=== PATIENT | female | born 2000 | race Caucasian/White ===

== ENCOUNTER 2022-12-25 11:09 | Outpatient (CLI) | payer BC, MEDICAID, SELFPAY | END 2022-12-25 11:10 | disposition home or self-care (01) | LOC: NFLDREF 12-27 11:37 | PROVIDERS: Visit Provider Obstetrics & Gynecology | DX: O99.013 Anemia complicating pregnancy, third trimester (principal); Z3A.34 34 weeks gestation of pregnancy | CPT/HCPCS: 86787 ==

== ENCOUNTER 2022-12-26 14:24 | Outpatient (CLI) | payer BC, MEDICAID, SELFPAY | END 2022-12-26 14:25 | disposition home or self-care (01) | LOC: NFLDREF 14:25 | PROVIDERS: Visit Provider Obstetrics & Gynecology | DX: O99.019 Anemia complicating pregnancy, unspecified trimester (principal) | CPT/HCPCS: 82728 ==

== ENCOUNTER 2023-01-08 13:40 | Outpatient (CLI) | payer BC, MEDICAID, SELFPAY | END 2023-01-08 13:41 | disposition home or self-care (01) | PROVIDERS: PCP Registered Nurse; Visit Provider Advanced Practice Midwife | DX: Z34.03 Encounter for supervision of normal first pregnancy, third trimester (principal); Z36.85 Encounter for antenatal screening for Streptococcus B; Z3A.36 36 weeks gestation of pregnancy | CPT/HCPCS: 87081; 87653 ==

== ENCOUNTER 2023-01-10 10:30 | Outpatient (RCR) | payer BC, MEDICAID, SELFPAY ==
--- NOTE | 2022-12-27 16:02 | URNOTE ---
Request received for authorization for Tico ([id number]). Prior authorization is not required per [facility] injectable drug authorization list.
[2023-01-03 13:43] VITALS: BP 110/72; PULSE 102; RESP 16; TEMP 36.7; O2SAT 98
[2023-01-03] MEDS: ferumoxytoL 510 MG in 0.9 % SODIUM CHLORIDE 250 ml 250 ML 1068 MG IVPB (14:04)
[2023-01-03] MEDS: 0.9 % SODIUM CHLORIDE 250 ml IV (14:06)
[2023-01-03 14:31] VITALS: BP 100/65; PULSE 110; RESP 16; TEMP 36.6; O2SAT 98
[2023-01-03 15:22] VITALS: BP 100/65; PULSE 99; RESP 16; TEMP 36.7; O2SAT 97
[2023-01-10 10:39] VITALS: BP 100/69; PULSE 92; RESP 16; TEMP 36.4; O2SAT 92
[2023-01-10] MEDS: 0.9 % SODIUM CHLORIDE 250 ml IV (11:15)
[2023-01-10] MEDS: SODIUM CHLORIDE 0.9 % (FLUSH) 10 ML SYRINGE IVF (11:15)
[2023-01-10] MEDS: ferumoxytoL 510 MG in 0.9 % SODIUM CHLORIDE 250 ml 250 ML 1068 MG IVPB (11:15)
[2023-01-10 11:34] VITALS: BP 104/67; PULSE 85; RESP 16; TEMP 37; O2SAT 97
[2023-01-10 12:12] VITALS: BP 101/66; PULSE 96; RESP 18; O2SAT 97
== END 2023-07-02 23:59 | disposition home or self-care (01) ==
LOC: CCIC 10:30
PROVIDERS: PCP Registered Nurse; Referring Provider Obstetrics & Gynecology; Visit Provider Obstetrics & Gynecology
DX: O99.019 Anemia complicating pregnancy, unspecified trimester (principal)
CPT/HCPCS: 96374; J7050; Q0138

== ENCOUNTER 2023-01-30 08:17 | Outpatient (CLI) | payer MEDICAID, SELFPAY ==
[2023-01-30 08:24] VITALS: RESP 18; TEMP 36.6
[2023-01-30 08:26] VITALS: PULSE 96; O2SAT 98
[2023-01-30 08:31] VITALS: PULSE 103; O2SAT 97
[2023-01-30 08:36] VITALS: BP 114/73; PULSE 89
--- NOTE | 2023-01-30 09:42 | PC.OBNST ---
NST Note NST Note Start: 01/30/23 08:20 Freq: ONCE Status: Active Protocol: Document 01/30/23 09:41 MMB (Rec: 01/30/23 09:42 MMB [id number]) NST Note 1 Para (# of births) 0 EDC 02/02/23 Gestational Age In Weeks & Days 39 Weeks & 4 Days Patient Presented with Complaint(s) of Contractions/cramping,Vaginal bleeding,Decreased movement Reactive Yes Appropriate for Gestational Age Yes RN Tori Johnston RN Date 01/30/23 Reactive Yes Appropriate for Gestational Age Yes TRACY Gramajo RN Date 01/30/23 OB NST charge Yes Complete NST Note via Write Note Yes The provider's electronic signature indicates the NST is reactive/appropriate for gestational age. *Note to provider: If an addendum is required, open the patient's chart and click on the note under the Nurse/Allied Health tab.
== END 2023-01-30 09:32 | disposition home or self-care (01) ==
LOC: OB OUT 08:18 → OB 08:19
PROVIDERS: Visit Provider Obstetrics & Gynecology
DX: O47.1 False labor at or after 37 completed weeks of gestation (principal); Z3A.39 39 weeks gestation of pregnancy
CPT/HCPCS: 59025; 99213

== ENCOUNTER 2023-01-31 08:25 | Inpatient (IN) | payer MEDICAID, SELFPAY ==
[2023-01-31] VITALS (57 sets, daily range): BP systolic 89–135; BP diastolic 51–83; PULSE 92–144; RESP 16–20; TEMP 36.7–37.3; O2SAT 96–100; BMI 28.2
[2023-01-31] MEDS: LACTATED RINGERS 1000 ML 1,000 ML 125 ML IV ×2 (08:51→16:23)
[2023-01-31] MEDS: AMPICILLIN 2 GM in 0.9 % SODIUM CHLORIDE Mini-bag 100 ML IVPB (08:52)
--- NOTE | 2023-01-31 10:02 | P.LDBA_ITS ---
Subjective History of Present Illness Time Seen by Provider: 09:00 Date Seen: 01/31/23 Narrative: Patient is being admitted to Labor and Delivery for spontaneous onset of labor. She is a 22 year old at 39 weeks 5 days gestation. Her full history and physical was completed by Dr. Simms on 01/15/2023. Please see this for details. Specific Issues/Plans H&P done on 01/15/[address] Simms 1. Transfer of care at 30 3/7 weeks 2. Anemia: hgb 10.4 on 11-13. Begin qod iron on 11/27. Repeat 12/25/22: Hb 10.3. * IV iron 1st dose 01/03, 2nd 01/10 * Hemoglobin: 11.6 on 01/15/23 3. Placental lacunae seen at 22weeks. No measurable blood flow noted. 4. Low lying placenta. RESOLVED. 5. GBS positive, plan ampicillin intrapartum Covid: not vaccinated. Recommended. Reviewed risks associated with covid infection in . 06-12-22 and 06-26-22: Blood type: O positive Ab screen neg Hgb 14.4 Platelets 255 Rubella immune RPR nonreactive HBsAg nonreactive HIV neg GC/Chlam neg/neg Pap: n/a Hep C nonreactive Urine culture: no growth 07-24-22: NIPT: low risk 11-13-22: Hgb 10.4* Ultrasounds: US on 06/12/22 shows single live IUP with dating discrepancy. Rec. revised EDC of 02-02-23 09-19-22 FAS: Anterior, low lying placenta 1.47cm from os. Situs not well seen. Slightly hyperechoic area between edge of placenta and internal os of cervix which could represents a small LUCIANA, sinus previa, or potentially a mucous plug. Rec. f/u US w/ MFM to evaluate. 09-30-22: active single fetus, EFW apropriate, nl JULIO, nl anatomy, cervix closed, placenta appears normal with small lacunae with have no measurable blood flow. It is NOT low lying or previa. Tdap: received 32 weeks OB - Problem Based A/P Additional Plan (1) Spontaneous onset of labor: Status: Acute Plan 1. Rupture membranes once ampicillin has been in for at least 3 hours. 2. The patient is open to any/all options for analgesia during labor. She is unsure if she wants medications or epidural for labor analgesia. 3. Expect vaginal delivery OB Exam Physical Exam Vital signs: Temp Pulse Resp BP Pulse Ox 98.7 F 97 16 121/83 96 01/31/23 09:49 01/31/23 09:48 01/31/23 09:49 01/31/23 09:48 01/31/23 06:22 Narrative: GENERAL APPEARANCE: Pleasant, , well-groomed woman in no acute distress. VITAL SIGNS: as noted in nursing notes HEAD: Normocephalic, atraumatic. THYROID: no masses, nodularity, tenderness or enlargement. LUNGS: Clear to auscultation bilaterally without wheezes, rales or rhonchi. HEART: Regular rate and rhythm with normal S1 and S2. No gallop, rub or murmur. ABDOMEN: Gravid. Soft, nontender, nondistended, with normal bowels sounds throughout. EFW: 130s, accelerations present, decelerations absent, reactive. Category 1 PRESENTATION: Vertex by Polo's maneuvers. SVE per nursin cm/ 60 %/ 0/soft/mid. Morfin score: 10 EXTREMITIES: No cyanosis, clubbing, or edema. No varicosities. NEUROLOGIC: Normal gait and balance. Normal deep tendon reflexes at bilateral patella 2+/2, equal without clonus. PSYCHIATRIC: alert and oriented x3. Normal speech pattern, eye contact and affect. SKIN: Warm, dry, and well perfused. Good turgor. No lesions, nodules or rashes.
[2023-01-31] MEDS: AMPICILLIN 1 GM in 0.9 % SODIUM CHLORIDE Mini-bag 100 ML IVPB ×2 (12:43→16:54)
--- NOTE | 2023-01-31 13:10 | PM.OBPNL ---
Subjective Time Seen by Provider: 12:30 Date Seen: 01/31/23 Narrative: Subjective: Aminata is feeling very uncomfortable with contractions and is somewhat tearful. She is considering an epidural. She would like to have her cervix checked to make the decision between epidural or not. She has been using nitrous gas for the last 1.5-2 hours. Objective: Vital signs per the patient's electronic medical record. EFW: 135 baseline, accelerations present, decelerations absent, reactive. Category 1 [place]: Contractions every 2-3 minutes. SVE: 6 cm/100%/+1 station. Bulging bag of water. Assessment: Active phase of stage of labor. Plan: 1. Planning epidural for labor analgesia 2. AROM when comfortable with the epidural. Objective Vital Signs: Last Vital Signs Temp 98.7 F 01/31/23 09:49 Pulse 97 01/31/23 11:41 Resp 16 01/31/23 09:49 BP 112/73 01/31/23 11:41 Pulse Ox 97 01/31/23 11:40
[2023-01-31] MEDS: LIDOCAINE 2% (PF) 5 ML VIAL EPIDURAL (14:20)
[2023-01-31] MEDS: ROPIVACAINE 0.2% 100 ml 100 ML 10 MG EPIDURAL (14:23)
--- NOTE | 2023-01-31 14:35 | PM.ANBPRC ---
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 What is your current living situation?: I presently have a place to live Problems where you live: no known problems In the past 12 months, utilities in danger of being shut off: no In past 12 months, lack of transportation kept you from medical appts, meetings, work, or getting things needed for daily living: no In the past 12 mos, have been you worried that your food would run out before you had money to buy more?: never true In the past 12 mos, the food you bought just didn't last and you didn't have money to buy more?: never true Smoking Status: Never smoker How often does anyone, including family, friends and others, physically hurt you: never How often does anyone, including family, friends and others, insult or talk down to you: never How often does anyone, including family, friends and others, threaten you with harm: never How often does anyone, including family, friends and others, scream or curse at you: never Little interest or pleasure in doing things: not at all Feeling down, depressed, or hopeless: not at all Meds Home Medications and Allergies Home Medications Medication Instructions Recorded Confirmed Type docosahexaenoic acid 200 mg mg PO 11/27/22 01/22/23 History capsule ( DHA) calcium carbonate 200 mg calcium 200 mg PO BID PRN 12/25/22 01/31/23 History (500 mg) chewable tablet (Tums) Allergies Allergy/AdvReac Type Severity Reaction Status Date / Time Milk Containing Products AdvReac Mild Gastrointestinal Verified 01/31/23 07:42 (Dairy) Upset Results Vital Signs Vital Signs: Last Vital Signs Temp 98.5 F 01/31/23 14:09 Pulse 104 H 01/31/23 14:30 Resp 16 01/31/23 14:09 BP 109/70 01/31/23 14:30 Pulse Ox 98 01/31/23 14:34 Weight: 69.989 kg Height: 157.48 cm Anesthesia Procedures Epidural Insertion Patient Location: OB Start Time: 14:00 Stop Time: 14:30 Start Date: 01/31/23 Stop Date: 01/31/23 Reason for Block: procedure for pain Patient Position: sitting Performed By: Jermaine Ace Preanesthetic Checklist: IV checked, risks and benefits discussed, monitors and equipment checked, pre-op evaluation, timeout performed and anesthesia consent Prep: chlorhexidine gluconate Monitoring: blood pressure monitoring, continuous pulse oximetry and heart rate Approach: midline Vertebral Space: lumbar (1-5) Epidural Technique: BAMBI saline Needle Type: Tuohy needle Injection Technique: continuous catheter Needle gauge: 17 Needle Length (cm): 10 cm Needle Insertion Depth (cm): 5 Catheter Gauge: 19 Catheter Type: multi-orifice Catheter at skin depth (cm): 11 Test Dose Result: negative and lidocaine 1.5% with epinephrine 1 to 200,000
[2023-01-31] MEDS: OXYTOCIN 30 unit/500 ML in NS 30 UNIT/500 ML BAG 325 UNIT IVPB (18:00)
--- NOTE | 2023-01-31 18:24 | W.PM.VAGDEL1 ---
Procedure Delivery date: 01/31/23 Procedure Done: Global Procedure Details: Aminata is a 22 year-old G 1 P 0 now [] admitted on 01/31/2023 at 0730 at 39 Weeks, 5 Days gestation for spontaneous onset of labor. AROM occurred at 4:07 p.m. on 01/31/2023 with clear fluid. Labor Analgesia: Nitrous and epidural Pitocin: No Labor onset: 01/31/2023 at 5:00 a.m. Complete: 01/31/2023 at 5:22 p.m.. Pushin01/31/2023 at 5:34 p.m.. heart tones during second stage were: Category 2 with early decelerations to the 90s to 100s with contractions with immediate return to baseline and moderate variability between contractions, reassuring. At 5:49 p.m. a viable female infant delivered in vertex direct OA presentation over bilateral second-degree labial lacerations via spontaneous vaginal delivery. The infant was placed on maternal abdomen. Cord was clamped and cut after the cord stopped pulsing. Nose and mouth were bulb suctioned. Infant weight pending. 9 at 1 minute and 9 at 5 minutes. Shoulder dystocia: No. Nuchal cord: No Placenta delivered spontaneously and complete at 6:01 p.m. with a 3 vessel cord. Laceration(s): Bilateral second-degree labial. Repaired using 3-0 Vicryl suture in a running locked manner. Blood loss: 250 mL. Blood loss measurement type: Quantitative Sponge and needles counts are correct. Specimen: Placenta Mother and were stable after delivery. 's name: Harmony The patient is planning on breast feeding. Intrapartal Events: None Delivery augmentation: rupture of membranes Delivery monitor: external FHT Route of delivery: Laceration description: Labial (Bilateral, 2nd degree) Delivery repair: Vicryl Estimated blood loss (mL): 250 Anesthesia type: Epidural Disposition: floor [place] Infant Gender: Female presentation: vertex Placental Delivery Description: Spontaneous Cord Description: 3 Vessels
[2023-01-31] MEDS: IBUPROFEN 600 MG TABLET PO (22:34)
[2023-02-01] MEDS: ACETAMINOPHEN 500 MG TABLET 1000 MG PO ×2 (02:10→13:44)
[2023-02-01 04:40] VITALS: BP 101/66; PULSE 95; RESP 16; TEMP 36.6; O2SAT 97
[2023-02-01 07:32] LABS: Hemoglobin* 11.2 gm/dL (12.0-16.0)
[2023-02-01] MEDS: DOCUSATE SODIUM 100 MG CAPSULE PO (08:39)
[2023-02-01] MEDS: IBUPROFEN 600 MG TABLET PO ×2 (08:39→21:45)
[2023-02-01 08:42] VITALS: BP 112/74; PULSE 98; RESP 16; TEMP 36.4; O2SAT 95
--- NOTE | 2023-02-01 09:50 | PM.OBPNVD1 ---
OB - PN:Subj Subjective Date Seen: 02/01/23 Patient comments OB post-: no complaints, pain well controlled, tolerating diet and flatus present [place] status: [place] feeding status: exclusively Narrative: Ana Paula is a 22 y.o. who was admitted to L & D In labor for delivery. ?She had an uncomplicated .?The patient feels well. ?The pain is well controlled with current medications. ?She has no new complaints. ?She is breast feeding and reports things are going well.? the patient has done well.? Vitals have been stable.? She has remained afebrile.? Has a good appetite, is tolerating a general diet. ?She is voiding without difficulty.? She is passing gas and has not had a bowel movement.? She is ambulating and denies any dizziness.? Has Small amount of rubra lochia. ? OB - PN: Obj Exam Physical Exam: Vital signs: Temp Pulse Resp BP Pulse Ox O2 Del Method 97.6 F 98 16 112/74 95 Room Air 02/01/23 08:42 02/01/23 08:42 02/01/23 08:42 02/01/23 08:42 02/01/23 08:42 02/01/23 08:42 Narrative: VITAL SIGNS: As noted above. GENERAL APPEARANCE: Alert, cooperative female in no acute distress. MOOD & AFFECT: Normal. ABDOMEN: Soft, non-distended and nontender. Uterus well contracted at umbilicus. : Normal lochia. EXTREMITIES: Nonedematous. Well perfused. Nontender. OB - PN: Obj Data Labs Labs: Laboratory Results - last 24 hr 02/01/23 07:25 Hgb 11.2 L OB - PN: A/P Delivery Assessment and Plan (1) Spontaneous onset of labor: Status: Deleted Plan day: 1 Plan: routine care
[2023-02-01 13:35] VITALS: BP 107/73; PULSE 99; RESP 16; TEMP 36.7; O2SAT 97
[2023-02-01 16:17] VITALS: BP 99/65; PULSE 105; RESP 16; TEMP 36.9; O2SAT 97
[2023-02-01 22:57] VITALS: BP 96/63; PULSE 97; RESP 16; TEMP 36.7; O2SAT 97
[2023-02-02] MEDS: ACETAMINOPHEN 500 MG TABLET 1000 MG PO (06:22)
[2023-02-02 07:56] VITALS: BP 101/71; PULSE 91; RESP 16; TEMP 36.7; O2SAT 96
--- NOTE | 2023-02-02 09:56 | P.DS_ITS ---
DS: Providers Provider Date Seen: 02/02/23 Date of admission: 01/31/23 08:25 Primary care physician: Not a Local Provider Admitting Clinician: Pilar Murillo MD Attending Physician on discharge: Rodolfo Rodney MD Date of Discharge: 02/02/23 DS: Diagnosis Discharge Diagnosis (1) (normal spontaneous vaginal delivery): Status: Acute Exam Narrative: Exam Narrative: VITAL SIGNS: As noted above. GENERAL APPEARANCE: Alert, cooperative female in no acute distress. MOOD & AFFECT: Normal. ABDOMEN: Soft, non-distended and appropriately tender, uterus well contracted at umbilicus.. : Normal lochia. EXTREMITIES: Nonedematous. Well perfused. Nontender. Const: Vital Signs, click to edit/add: Vital Signs - 24 hr 02/01/23 13:35 02/01/23 16:17 02/01/23 22:57 Temperature 98.0 F 98.4 F 98.1 F Pulse Rate [Pulse Oximeter] 99 105 H 97 Respiratory Rate 16 16 16 Blood Pressure [Le ft Arm] 107/73 99/65 96/63 Pulse Oximetry 97 97 97 Oxygen Delivery Me thod Room Air Room Air Room Air 02/02/23 07:56 Temperature 98.0 F Pulse Rate [Pulse Oximeter] 91 Respiratory Rate 16 Blood Pressure [Le ft Arm] 101/71 Pulse Oximetry 96 Oxygen Delivery Me thod Room Air OB - DS: Summary Hospital Course Hospital Course: The patient is a 22 year old G 1 P 1 at 39 6/7 weeks gestation that was admitted to the Center on 01/31/23 in labor for delivery. She had an uncomplicated vaginal delivery. She delivered a viable female . She is breast feeding. the patient has done well. Peripartum Data delivery method: Vaginal Laceration description: Labial complications: none [place] Infant Gender: Female Discharge Plan: Home Status at Discharge Functional status at discharge: independent ambulation Overall status at discharge: patient is progressing back to baseline Time Spent with Patient Time attestation: Total time spent providing and/or coordinating discharge services: Discharge Plan Discharge Disposition: Home, Self-Care Date of Admission: 01/31/23 08:25 Attending Provider on Discharge: Meeta Rodney Primary Care Provider: Provider,Not a Local Condition: Stable Anticipated Discharge Date/Time: 02/02/23 09:59 Discharge Medications: New acetaminophen 500 mg Tablet 1,000 mg PO Q6H PRNQty: 30 0RF ibuprofen 600 mg Tablet 600 mg PO Q6H PRNQty: 30 0RF Continued DHA 200 mg capsule 200 mg PO DAILY calcium carbonate [Tums] 200 mg calcium (500 mg) tablet,chewable 200 mg PO BID PRN Discharge Orders: Discharge Order (Routine); Ordered 02/02/23 Ordered By: Meeta Rodney Patient Education: OB Vaginal/Breast Feeding Additional Instructions: Follow up in clinic in 2 weeks for mood and check. Follow up in clinic in 6 weeks for regular check. Patient interested in progesterone IUD. Activity Level: Activity as Tolerated Activity Detail: Nothing vaginally for 6 weeks Discharge Diet: Regular Follow Up Appointments: Provider,Not a Local [Primary Care Provider] - [facility]
== END 2023-02-02 11:15 | disposition home or self-care (01) | DRG 807 ==
LOC: OB OUT 08:27 → OB 08:27
PROVIDERS: Admitting Provider Obstetrics & Gynecology; Visit Provider Obstetrics & Gynecology
DX: O99.824 Streptococcus B carrier state complicating childbirth (principal); Z37.0 Single live birth; O70.1 Second degree perineal laceration during delivery; O99.02 Anemia complicating childbirth; D64.9 Anemia, unspecified; Z3A.39 39 weeks gestation of pregnancy
CPT/HCPCS: 01967; 36415; 85018; A9270; J0290; J2371; J2795; J7120

== ENCOUNTER 2024-12-01 07:30 | Day surgery (SDC) | payer MEDICAID, SELFPAY ==
[2024-12-01] VITALS (9 sets, daily range): BP systolic 99–113; BP diastolic 65–98; PULSE 60–94; RESP 16–20; TEMP 36.3–37.4; O2SAT 96–100; BMI 19.6
[2024-12-01 07:51] LABS: Ur HCG Qualitative* Negative (Negative)
[2024-12-01] MEDS: SODIUM CHLORIDE 0.9 % (FLUSH) 10 ML SYRINGE IVF (08:24)
[2024-12-01] MEDS: LACTATED RINGERS 1000 ML 1,000 ML 100 ML IV (08:25)
[2024-12-01] MEDS: MIDAZOLAM HCL 1 MG/ML inj IVP (08:45)
--- NOTE | 2024-12-01 08:53 | SUR.PREOP ---
TIME?OUT:?0842, right foot PT/RN/MDA?VERIFICATION?OF?SURGICAL?SITE,?PROCEDURE,?AND?CONSENT OBTAINED?PRIOR?TO?INVASIVE?PROCEDURE.
--- NOTE | 2024-12-01 09:16 | P.ANES_ITS ---
Anesthesia Charges Start Date/Time Anesthesia Start Date: 12/01/24 Anesthesia Start Time: 08:55 Stop Date/Time Anesthesia Stop Date: 12/01/24 Anesthesia Stop Time: 12:40 Coding CPT Codes CPT Codes: ANESTH LOWER LEG BONE SURG - 15591 ([id number]) P1 - NORMAL HEALTHY PATIENT, QK - FAMILY DEVELOPMENT SPECIALIST 2-4 CNCRNT ANES PROC, QX - BOBBIN COLLECTOR SVTroy W/ MED DIRECTION
--- NOTE | 2024-12-01 09:16 | W.ANESCHARGE ---
Anesthesia Charges Start Date/Time Anesthesia Start Date: 12/01/24 Anesthesia Start Time: 08:55 Stop Date/Time Anesthesia Stop Date: 12/01/24 Anesthesia Stop Time: 12:40 Coding CPT Codes CPT Codes: ANESTH LOWER LEG BONE SURG - 88561 ([id number]) P1 - NORMAL HEALTHY PATIENT, QK - AIR/OCEAN EXPORT CLERK 2-4 CNCRNT ANES PROC, QX - DIGITAL ACCOUNT MANAGER SVTroy W/ MED DIRECTION
--- NOTE | 2024-12-01 09:29 | SUR.OPER ---
PATIENT QUESTIONS ANSWERED SATISFACTORILY PREOPERATIVELY.? PATIENT BROUGHT TO OR #1 PER CART.? Patient positioned supine on OR #1 bed.? The perioperative?team supported arms bilaterally on arm boards.? Final approval of positioning by surgeon.
--- NOTE | 2024-12-01 09:46 | P.ANES_ITS ---
Anesthesia Charges Start Date/Time Anesthesia Start Date: 12/01/24 Anesthesia Start Time: 08:55 Stop Date/Time Anesthesia Stop Date: 12/01/24 Anesthesia Stop Time: 12:40 Coding CPT Codes CPT Codes: ANESTH LOWER LEG BONE SURG - 14563 ([id number]) P1 - NORMAL HEALTHY PATIENT, QK - HEEL TURNER 2-4 CNCRNT ANES PROC, QX - VAC PRESS OPERATOR SVTroy W/ MED DIRECTION
--- NOTE | 2024-12-01 09:46 | W.ANESCHARGE ---
Anesthesia Charges Start Date/Time Anesthesia Start Date: 12/01/24 Anesthesia Start Time: 08:55 Stop Date/Time Anesthesia Stop Date: 12/01/24 Anesthesia Stop Time: 12:40 Coding CPT Codes CPT Codes: ANESTH LOWER LEG BONE SURG - 96736 ([id number]) P1 - NORMAL HEALTHY PATIENT, QK - CROP RANCH HAND 2-4 CNCRNT ANES PROC, QX - TEAM ASSISTANT SVTroy W/ MED DIRECTION
--- NOTE | 2024-12-01 09:47 | W.PM.NB ---
Nerve Block Nerve Block Time Seen by Provider: 08:45 Date Seen: 12/01/24 Type of block requested by surgeon for post-operative analgesia: popliteal Side: right Time out performed: Yes Verification of patient name: Yes Verification of date of : Yes Site marking: site marked Name of person performing procedure: Dejan Continuous monitoring Was continuous monitoring of O2 sat, B/P, professor of genetics, recorded every 15 minutes?: Yes Procedure Checklist: sterile prep, needles and gloves Ultrasound guided. Images saved: Yes Medications given in 5ml increments after negative aspiration: Marcaine %: 0.25 mL: 15 and Exparel mL: 5 Needle gauge: 22 Patient tolerated procedure well: Yes Additional comments: Needle noted adjacent to nerve Block Charges Block Charge (with Pro Fee): Sciatic Nerve Use of Ultrasound Machine for Block: Yes- US Guidance/pain block
--- NOTE | 2024-12-01 09:47 | W.PM.NB ---
Nerve Block Nerve Block Time Seen by Provider: 08:45 Date Seen: 12/01/24 Type of block requested by surgeon for post-operative analgesia: adductor canal Side: right Time out performed: Yes Verification of patient name: Yes Verification of date of : Yes Site marking: site marked Name of person performing procedure: Dejan Continuous monitoring Was continuous monitoring of O2 sat, B/P, cardiac rehabilitation program director, recorded every 15 minutes?: Yes Procedure Checklist: sterile prep, needles and gloves Ultrasound guided. Images saved: Yes Medications given in 5ml increments after negative aspiration: Marcaine %: 0.25 mL: 15 and Exparel mL: 5 Needle gauge: 22 Patient tolerated procedure well: Yes Additional comments: Needle noted adjacent to nerve Block Charges Block Charge (with Pro Fee): Femoral Nerve Use of Ultrasound Machine for Block: Yes- US Guidance/pain block
[2024-12-01] MEDS: BUPIVACAINE 0.25% 30 ML 10 ML INJECTION (12:19)
--- NOTE | 2024-12-02 09:23 | W.PM.PODPROC ---
Date of Procedure: 12/01/24 Time Seen by Provider: 08:30 Surgeon: Radha Gramajo DPM Co-Surgeon: Julius Gallego DPM Pre-op Diagnosis: 1. Right bunion 2. Right tailors bunion 3. Exostosis right 1st metatarsal Post-op Diagnosis: 1. Right bunion 2. Right tailors bunion 3. Exostosis right 1st metatarsal Type of Procedure: 1. Right foot lapidus bunionectomy 2. Right foot taliors bunionectomy 3. Right foot cheilectomy 4. Bone graft harvest right foot 5. Application of posterior splint right lower extremity Procedure Description: The patient was identified prior to being brought back into the operating room using their name and date of as patient identifiers. The intended surgical care plan was then reviewed in detail with the patient as well as rationale for surgery, most common risks, complications, and expected recovery course. The patient was given opportunity to ask questions, which were to the best of my ability. Patient ultimately voiced no questions or concerns and agreed to proceed forward with the surgery as planned. The patient was brought from the preoperative holding area to the operating room, and placed on the operating room table in the supine positions. At this time a timeout was performed by myself and operating room staff to identify the proper patient, site and operation to be performed. A well padded pneumatic ankle tourniquet was applied to the patient's operative lower extremity. The extremity was then scrubbed, prepped and draped in the normal sterile fashion. The lateral aspect of the calcaneus was penetrated with a large bore needle using standard technique and bone marrow along with chips of cancellous bone within the calcaneus was aspirated in 0.5-cc increments with redirection between each increment until an appropriate volume of bone marrow aspirate was obtained for use with the operative procedure performed. The integrity of the bone marrow aspiration/bone graft site was verified with stress palpation. Attention was then directed over the left foot 1st met-cuneiform joint. An incision was made where dissection was carried deep down to the level of the deep capsular and periosteal tissue.? A longitudinal linear capsulotomy was then performed and this tissue was reflected to expose the 1st metatarsal cuneiform joint. Attention was then directed to the medial 1st metatarsal phalangeal joint. An incision was made and dissection was carried deep down to the level of the deep capsular and periosteal tissue.? A longitudinal linear capsulotomy was performed and a small wedge of capsular tissue was sharply removed. An exostosis was noted off the head of the 1st metatarsal, and using a sagittal saw, this spur was removed in total. Attention was then carried deep into the 1st interspace, and the conjoined adductor tendon identified and released. The fibular sesamoid was dissected free from the flexor hallucis brevis tendon. Attention was then directed back toward the 1st metatarsal cuneiform joint. According to the clinical appeals rn's technique using the Lapiplasty system, a sagittal saw was then utilized to resect the articulating cartilage from the medial cuneiform, taking a laterally based wedge to correct for the increased intermetatarsal angle.? the cartilage from the base of the 1st metatarsal. Both sides of the joint were then fish-scaled and fenestrated in preparation for fusion and the previously harvested bone graft was packed into the site of fusion. The 1st met-cuneiform was reduced with the clamp system while achieving frontal plane derotation, first ray plantarflexion and intermetatarsal angle reduction. Direct image intensification was utilized to confirm the position and length of our temporary fixation. At this time, two locking plate constructs were used along the medial and dorsal aspect of the arthrodesis site.? Position and deformity correction was once again confirmed under direct visualization and image intensification, and was noted to be satisfactory and provide stable rigid internal fixation. Attention was then directed to the dorsal aspect of the 5th metatarsal, right foot. The planned incision was marked with a pen over the dorsal aspect of the right 5th metatarsophalangeal joint. A longitudinal linear incision made through the skin. The incision was carried deep through the subcutaneous tissue. Care was taken to retract and protect all vital neurovascular structures. The subcutaneous tissue was dissected and from the underlying capsule and periosteum and the level of the capsule and periosteum were identified. A longitudinal linear capsular incision was made on the dorsal lateral aspect of the fifth metatarsal. Periosteum and capsule were dissected free from the underlying bone. The lateral prominence to be removed was marked with a pen, and the a sagittal saw was utilized to resect the lateral eminence from the head. A hand rasp was utilized to round off the lateral metatarsal head. Copious irrigation of the incision site was carried out. The surgical sites were copiously irrigated. Deep Capsular tissues and subcutaneous layers were closed with absorbable sutures and skin was reapproximated with non-absorbable sutures. Upon release of the pneumatic tourniquet, immediate reperfusion of toes 1 through 5 was noted. A postoperative sir kiara wylie modified dressing consisting of xeroform, ABDs, Kerlix, 4 x 4's, and an JAG bandage was applied to the patient's right foot. A well fiberglass posterior splint was then applied keeping the pt's ankle in neutral.? The patient was transferred from the operating room to the post anesthesia care unit with vital signs stable and vascular status intact to the left lower extremity. The patient appeared to tolerate both the procedure and anesthesia well. Anesthesia: MAC and regional (pop/saph nerve block) Hemostasis: ankle (130 min ) Estimated blood loss (mL): 30 Provider Operated C-arm: C-arm fluoroscopy operated by myself. 7 C-arm spot images were obtained. Implants: Lapiplasty speed plate x 2 Specimens: none sent Disposition: same day
== END 2024-12-01 14:15 | disposition home or self-care (01) ==
LOC: OR 07:31
PROVIDERS: Visit Provider Podiatrist
PROC: (CPT 28292; principal; 2024-12-01 08:45)
PROC: (CPT 28297; 2024-12-01 08:45)
DX: M21.611 Bunion of right foot (principal); M25.774 Osteophyte, right foot; M21.621 Bunionette of right foot; G89.18 Other acute postprocedural pain
CPT/HCPCS: 28297; 28110; 20902; 01480; 64445; 64447; 73620; 76000; 76942; 81025; C1713; J0665; J0666; J0690; J1100; J1885; J2250; J2371; J2405; J2704; J3010; J3490; J7120

== ENCOUNTER 2025-02-24 15:00 | Outpatient (RCR) | payer MEDICAID, SELFPAY | END 2025-02-24 16:10 | disposition home or self-care (01) | PROVIDERS: Visit Provider Podiatrist | DX: M20.11 Hallux valgus (acquired), right foot (principal); Z51.89 Encounter for other specified aftercare | CPT/HCPCS: 97110; 97112; 97140; 97161 ==